=== PATIENT | female | born 1975 | race Caucasian/White ===

== ENCOUNTER → 2021-05-20 | Outpatient (CLI) | payer OTHER ==
[~2021-05-20] MED LIST: AMOX500C2 PO; AUGM; AVELOX; BCP; CELEXA; CEPH500C PO; CTRZ10T PO; DIPH1TAB25 PO; DOXY100C2 PO; EXCEDRIN; FEXO1TAB42; FLT05NA16 NSEACH; HYDR-3062 PO; HYDR-707 PO; IBUPROFEN; PRM25T PO; SINUS; TRAM-21; TRAM-21 PO; TRAM50TA2 PO; XANAX; muscle relaxer
--- NOTE | 2021-05-20 17:12 | Diagnostic Imaging Report ---
INDICATION: Cervical neck pain. FINDINGS: 5 views. There is loss of normal lordotic curve. Body height is well-maintained. Odontoid is intact. Atlantoaxial joints in good alignment. There is narrowing of the disc spaces at C5-C6 and C6-C7. There are hypertrophic endplate changes anteriorly mild in nature. Facets show good alignment. The oblique view showed no significant bony foraminal encroachment. IMPRESSION: Degenerative cervical disc disease moderate to severe in nature at C5-C6 and C6-C7. Dictated on workstation # [id number]
== END ==
LOC: RAD 15:38
PROVIDERS: ATTEND Nurse Practitioner Family
DX: M50.123 Cervical disc disorder at C6-C7 level with radiculopathy (principal); M79.601 Pain in right arm
CPT/HCPCS: 72050